=== PATIENT | male | born 1940 | race Caucasian/White ===

== ENCOUNTER → 2016-11-14 | Outpatient (CLI) | payer MEDICARE ==
[2016-11-14 09:23] LABS: BUN 22 mg/dL (7-18)
[2016-11-14 09:27] LABS: GFR (ESTIMATED) 94 ML/MIN (>60)
== END ==
LOC: LAB 08:05
PROVIDERS: Internal Medicine
DX: J84.112 Idiopathic pulmonary fibrosis (principal); Z79.899 Other long term (current) drug therapy

== ENCOUNTER → 2017-01-28 | Outpatient (CLI) | payer MEDICARE ==
[2017-01-28 12:06] VITALS: BP 135/90
[2017-01-28 12:07] VITALS: BP 158/95
== END ==
LOC: RT 01-14 13:00
DX: R06.02 Shortness of breath (principal); J84.112 Idiopathic pulmonary fibrosis